=== PATIENT | male | born 1960 | race Caucasian/White ===

== ENCOUNTER 2016-04-13 18:59 | Inpatient (IN) | payer MEDICAID ==
[~2016-04-13] VITALS: Ht 172.7 cm; Wt 122.8 kg
[2016-04-13 20:22] LABS: BASOPHILS % (AUTO) 2.6 % (0.0-2.0); EOSINOPHILS % (AUTO) 1.8 % (1.0-6.0); HEMATOCRIT 38.5 % (41-53); LYMPHOCYTES # (AUTO) 2.7 K/uL (1.0-4.8); MEAN CORPUSCULAR HGB CONC 33.9 G/dL (31.0-37.0); MEAN CORPUSCULAR VOLUME 94 fL (80-100); MONOCYTES # (AUTO) 0.6 K/uL (0.1-1.0); MONOCYTES % (AUTO) 6.1 % (2.0-9.0); NEUTROPHILS # (AUTO) 6.7 K/uL (1.8-7.7); NEUTROPHILS % (AUTO) 63.5 % (40.0-70.0); PLATELET COUNT (AUTO) 428 K/uL (150-450); RED BLOOD CELL COUNT(AUTO) 4.08 MIL/uL (4.50-5.90); RED CELL DISTRIBUTION WIDTH 14.1 % (11.5-14.5); WHITE BLOOD COUNT (AUTO) 10.6 K/uL (4.5-11.0)
[2016-04-13 20:29] LABS: ANION GAP 10 mmol/L (8-16); CALCIUM, TOTAL 8.6 mg/dL (8.8-10.5); CARBON DIOXIDE 23 mmol/L (22-29); CHLORIDE 92 mmol/L (98-107); GLOMERULAR FILTR. RATE CALC > 60 mL/min (>60); POTASSIUM 3.9 mmol/L (3.5-5.1); SODIUM SERUM 125 mmol/L (136-145); UREA NITROGEN, BLOOD 8 mg/dL (7-18)
[2016-04-13 20:35] LABS: ALANINE AMINOTRANSFERASE 53 U/L (12-78); ALBUMIN 3.2 g/dL (3.4-5.0); ASPARTATE AMINOTRANSFERASE 45 U/L (15-37); BILIRUBIN,TOTAL 0.2 mg/dL (0.1-1.0); CREATINE KINASE, TOTAL 56 U/L (39-308); TOTAL PROTEIN, SERUM 7.3 g/dL (6.4-8.2)
[2016-04-13 20:45] LABS: B-TYPE NATRIURETIC PEPTIDE 36 pg/mL (0-100)
[2016-04-13 21:15] LABS: INR 0.9 (0.9-1.1)
[2016-04-13 21:42] LABS: GLUCOSE, URINE (UA) NEGATIVE (NEGATIVE); KETONES,URINE NEGATIVE (NEGATIVE); LEUKOCYTE ESTERASE ,URINE NEGATIVE (NEGATIVE); OCCULT BLOOD,URINE NEGATIVE (NEGATIVE); PH,URINE 5.5 (5.0-8.0); PROTEIN,URINE NEGATIVE (NEGATIVE)
[2016-04-13 21:50] LABS: AMMONIA 18 umol/L (11-32); TROPONIN I < 0.02 ng/mL (0.00-0.05)
[2016-04-13 21:50] LABS: ADD UA MICROSCOPIC NO; APPEARANCE,URINE CLEAR (CLEAR)
[2016-04-13] MEDS ORDERED: SODIUM CHLORIDE 0.9% 1,000 ML IV ONE (22:00)
[2016-04-13] MEDS ORDERED: MAGNESIUM SULFATE 2 GM, MVI, ADULT NO.1 WITH VIT K 10 ML, THIAMINE HCL 100 MG, FOLIC AC... IV ONE ×5 (22:30)
[2016-04-13] MEDS ORDERED: LORazepam 2 MG/ML VIAL IVP ONE (23:30)
[2016-04-13] MEDS ORDERED: ONDANSETRON HCL 4 MG/2 ML VIAL IVP PRN (23:45)
[2016-04-13] MEDS ORDERED: 0.9% SODIUM CHLORIDE 10 ML SYRINGE IVP PRN (23:45)
[2016-04-14] VITALS (7 sets, daily range): BP systolic 130–155; BP diastolic 71–98
[2016-04-14 00:01] LABS: ACETAMINOPHEN 8 mcg/mL (10-30)
[2016-04-14] MEDS ORDERED: ChlordiazePOXIDE HCL 25 MG CAPSULE PO PRN (01:45)
[2016-04-14] MEDS ORDERED: OxyCODONE HCL/ACETAMINOPHEN 5-325 MG TABLET PO PRN (02:00)
[2016-04-14] MEDS ORDERED: ONDANSETRON HCL 4 MG/2 ML VIAL IVP PRN (02:00)
[2016-04-14] MEDS ORDERED: 0.9% SODIUM CHLORIDE 10 ML SYRINGE IVP PRN (02:00)
[2016-04-14] MEDS: SODIUM CHLORIDE 0.9% 1,000 ML IV SCH ×2 (02:11→19:47)
[2016-04-14] MEDS: DOCUSATE SODIUM 100 MG CAPSULE PO SCH ×3 (02:11→19:47)
[2016-04-14] MEDS: OxyCODONE HCL/ACETAMINOPHEN 5-325 MG TABLET PO PRN (02:12)
[2016-04-14] MEDS ORDERED: INFLUENZA VIRUS VACCINE QVS 2016-17 (3YR+)/PF 60 MCG/0.5 ML SYRINGE IM ONE (02:15)
[2016-04-14 06:24] LABS: HEMOGLOBIN A1C 5.8 % (4.5-6.2)
[2016-04-14 06:32] LABS: CHOL/HDL RATIO 2.2 (4.2-7.3)
[2016-04-14] MEDS: MULTIVITAMINS, THERAPEUTIC TABLET PO SCH (08:20)
[2016-04-14] MEDS: THIAMINE HCL 100 MG TABLET PO SCH (08:20)
[2016-04-14] MEDS: FOLIC ACID 1 MG TABLET PO SCH (08:20)
[2016-04-14] MEDS: PANTOPRAZOLE SODIUM 40 MG/VIAL IVP SCH (08:21)
[2016-04-14] MEDS ORDERED: GADOBUTROL 1 MMOL/ML 10 ML VIAL IVP ONE (08:49)
[2016-04-14] MEDS ORDERED: PANTOPRAZOLE SODIUM 40 MG/VIAL IVP SCH (09:00)
[2016-04-15 04:51] VITALS: BP 153/74
[2016-04-15] MEDS: OxyCODONE HCL/ACETAMINOPHEN 5-325 MG TABLET PO PRN ×2 (04:57→16:46)
[2016-04-15 06:34] LABS: BASOPHILS % (AUTO) 1.1 % (0.0-2.0); EOSINOPHILS % (AUTO) 1.1 % (1.0-6.0); HEMATOCRIT 36.7 % (41-53); HEMOGLOBIN 12.3 g/dL (13.5-17.5); LYMPHOCYTES # (AUTO) 1.9 K/uL (1.0-4.8); LYMPHOCYTES % (AUTO) 18.6 % (22.0-44.0); MEAN CORPUSCULAR HEMOGLOBIN 32.1 pg (26.0-34.0); MEAN CORPUSCULAR HGB CONC 33.4 G/dL (31.0-37.0); MEAN CORPUSCULAR VOLUME 96 fL (80-100); MONOCYTES # (AUTO) 0.6 K/uL (0.1-1.0); MONOCYTES % (AUTO) 6.4 % (2.0-9.0); NEUTROPHILS # (AUTO) 7.2 K/uL (1.8-7.7); NEUTROPHILS % (AUTO) 72.8 % (40.0-70.0); PLATELET COUNT (AUTO) 361 K/uL (150-450); RED BLOOD CELL COUNT(AUTO) 3.83 MIL/uL (4.50-5.90); RED CELL DISTRIBUTION WIDTH 14.3 % (11.5-14.5); WHITE BLOOD COUNT (AUTO) 9.9 K/uL (4.5-11.0)
[2016-04-15 06:45] LABS: ANION GAP 7 mmol/L (8-16); CALCIUM, TOTAL 9.1 mg/dL (8.8-10.5); CARBON DIOXIDE 27 mmol/L (22-29); CHLORIDE 100 mmol/L (98-107); CREATININE 0.62 mg/dL (0.60-1.30); GLOMERULAR FILTR. RATE CALC > 60 mL/min (>60); POTASSIUM 3.8 mmol/L (3.5-5.1); SODIUM SERUM 134 mmol/L (136-145); UREA NITROGEN, BLOOD 3 mg/dL (7-18)
[2016-04-15] MEDS ORDERED: ChlordiazePOXIDE HCL 25 MG CAPSULE PO PRN (07:00)
[2016-04-15] MEDS: SODIUM CHLORIDE 0.9% 1,000 ML IV SCH (07:51)
[2016-04-15] MEDS: ChlordiazePOXIDE HCL 25 MG CAPSULE PO SCH ×4 (08:03→20:31)
[2016-04-15] MEDS: THIAMINE HCL 100 MG TABLET PO SCH (08:03)
[2016-04-15] MEDS: FOLIC ACID 1 MG TABLET PO SCH (08:03)
[2016-04-15] MEDS: DOCUSATE SODIUM 100 MG CAPSULE PO SCH ×2 (08:04→20:31)
[2016-04-15] MEDS: MULTIVITAMINS, THERAPEUTIC TABLET PO SCH (08:04)
[2016-04-15] MEDS: PANTOPRAZOLE SODIUM 40 MG/VIAL IVP SCH (08:04)
[2016-04-15 08:14] VITALS: BP 163/80
[2016-04-15 11:21] VITALS: BP 151/98
[2016-04-15 15:37] VITALS: BP 108/58
[2016-04-15 20:41] VITALS: BP 121/85
[2016-04-16 00:04] VITALS: BP 119/78
[2016-04-16] MEDS: OxyCODONE HCL/ACETAMINOPHEN 5-325 MG TABLET PO PRN (00:28)
[2016-04-16] MEDS: SODIUM CHLORIDE 0.9% 1,000 ML IV SCH ×3 (00:30→13:45)
[2016-04-16 04:18] VITALS: BP 122/75
[2016-04-16 07:16] VITALS: BP 140/74
[2016-04-16] MEDS: PANTOPRAZOLE SODIUM 40 MG/VIAL IVP SCH (08:09)
[2016-04-16] MEDS: MULTIVITAMINS, THERAPEUTIC TABLET PO SCH (08:10)
[2016-04-16] MEDS: ChlordiazePOXIDE HCL 25 MG CAPSULE PO SCH ×3 (08:10→15:25)
[2016-04-16] MEDS: FOLIC ACID 1 MG TABLET PO SCH (08:10)
[2016-04-16] MEDS: THIAMINE HCL 100 MG TABLET PO SCH (08:10)
[2016-04-16] MEDS: DOCUSATE SODIUM 100 MG CAPSULE PO SCH (08:10)
[2016-04-16 11:19] VITALS: BP 138/72
[2016-04-16 15:32] VITALS: BP 131/76
[2016-04-17] MEDS ORDERED: ChlordiazePOXIDE HCL 10 MG CAPSULE PO PRN (07:00)
[2016-04-17] MEDS ORDERED: ChlordiazePOXIDE HCL 10 MG CAPSULE PO SCH (09:00)
[2016-04-18] MEDS ORDERED: ChlordiazePOXIDE HCL 10 MG CAPSULE PO PRN (07:00)
== END 2016-04-16 17:25 | disposition home or self-care (01) | DRG 775 ==
LOC: EMS 18:59 → 6N 04-14 00:15
PROVIDERS: ADMIT Internal Medicine; ATTEND Internal Medicine
DX: F10.229 Alcohol dependence with intoxication, unspecified (principal); E43 Unspecified severe protein-calorie malnutrition; G93.41 Metabolic encephalopathy; E87.1 Hypo-osmolality and hyponatremia; Z91.81 History of falling; Z68.41 Body mass index [BMI] 40.0-44.9, adult
CPT/HCPCS: 70450; 70544; 70553; 71020; 71101; 73502; 83036; 90471; 93005; 96365; 96366; 96375; 99285; A9585; C9113; G0480; G0481; J2060; J3411; J3475; J3490; J7030

== ENCOUNTER 2017-05-31 15:56 | Emergency (ER) | payer MEDICAID ==
[~2017-05-31] VITALS: Ht 175.3 cm; Wt 145.0 kg
[2017-05-31] MEDS ORDERED: THIA100 PO (16:08)
[2017-05-31] MEDS ORDERED: FOLI1 PO (16:08)
[2017-05-31] MEDS ORDERED: POTA10CA69 PO (16:08)
[2017-05-31] MEDS ORDERED: MULT1TAB66 PO (16:08)
[2017-05-31] MEDS ORDERED: FURO20 PO (16:08)
[2017-05-31 18:06] VITALS: BP 140/80
[2017-05-31 18:29] LABS: BASOPHILS % (AUTO) 1.5 % (0.0-2.0); EOSINOPHILS % (AUTO) 3.3 % (1.0-6.0); HEMATOCRIT 34.3 % (41-53); HEMOGLOBIN 11.8 g/dL (13.5-17.5); LYMPHOCYTES % (AUTO) 24.3 % (22.0-44.0); MEAN CORPUSCULAR HGB CONC 34.3 G/dL (31.0-37.0); MEAN CORPUSCULAR VOLUME 91 fL (80-100); MONOCYTES # (AUTO) 0.7 K/uL (0.1-1.0); MONOCYTES % (AUTO) 5.9 % (2.0-9.0); NEUTROPHILS # (AUTO) 8.1 K/uL (1.8-7.7); PLATELET COUNT (AUTO) 341 K/uL (150-450); RED BLOOD CELL COUNT(AUTO) 3.79 MIL/uL (4.50-5.90); RED CELL DISTRIBUTION WIDTH 15.6 % (11.5-14.5)
[2017-05-31 18:33] LABS: APPEARANCE,URINE CLEAR (CLEAR); BILIRUBIN,URINE NEGATIVE (NEGATIVE); GLUCOSE, URINE (UA) NEGATIVE (NEGATIVE); KETONES,URINE NEGATIVE (NEGATIVE); LEUKOCYTE ESTERASE ,URINE NEGATIVE (NEGATIVE); NITRATE,URINE NEGATIVE (NEGATIVE); OCCULT BLOOD,URINE NEGATIVE (NEGATIVE); PROTEIN,URINE NEGATIVE (NEGATIVE); UROBILINOGEN,URINE 0.2 mg/dL (<=1.0)
[2017-05-31 18:39] LABS: ANION GAP 9 mmol/L (8-16); CALCIUM, TOTAL 9.7 mg/dL (8.8-10.5); CARBON DIOXIDE 27 mmol/L (22-29); CHLORIDE 96 mmol/L (98-107); CREATININE 0.79 mg/dL (0.60-1.30); GLOMERULAR FILTR. RATE CALC > 60 mL/min (>60); GLUCOSE,RANDOM 119 mg/dL (70-110); POTASSIUM 3.8 mmol/L (3.5-5.1); SODIUM SERUM 132 mmol/L (136-145); UREA NITROGEN, BLOOD 7 mg/dL (7-18)
[2017-05-31 18:46] LABS: ALANINE AMINOTRANSFERASE 35 U/L (12-78); ALBUMIN 3.2 g/dL (3.4-5.0); ALKALINE PHOSPHATASE 182 U/L (46-116); ASPARTATE AMINOTRANSFERASE 89 U/L (15-37); BILIRUBIN,TOTAL 0.5 mg/dL (0.1-1.0); TOTAL PROTEIN, SERUM 8.1 g/dL (6.4-8.2)
== END 2017-05-31 18:55 | disposition home or self-care (01) ==
LOC: EMS 15:58
DX: E87.1 Hypo-osmolality and hyponatremia (principal); Z91.030 Bee allergy status
CPT/HCPCS: 36415; 80053; 81003; 85025; 93005; 99285; G0480

== ENCOUNTER 2017-08-19 22:59 | Emergency (ER) | payer MEDICAID ==
[~2017-08-19] VITALS: Ht 175.3 cm; Wt 133.2 kg
[~2017-08-19 22:59] MED LIST: FOLI1 PO; FURO20 PO; MULT1TAB66 PO; POTA10CA69 PO; THIA100T67 PO
[2017-08-19 23:30] VITALS: BP 124/71
== END 2017-08-20 00:15 | disposition left against medical advice (07) ==
LOC: EMS 22:59
DX: F10.129 Alcohol abuse with intoxication, unspecified (principal); I25.2 Old myocardial infarction; Z91.030 Bee allergy status
CPT/HCPCS: 99283

== ENCOUNTER 2017-10-18 11:02 | Emergency (ER) | payer MEDICAID ==
[~2017-10-18] VITALS: Ht 172.7 cm; Wt 136.4 kg
[2017-10-18 11:38] VITALS: BP 145/96
== END 2017-10-18 11:52 | disposition home or self-care (01) ==
LOC: EMS 11:02
DX: L98.9 Disorder of the skin and subcutaneous tissue, unspecified (principal); L53.9 Erythematous condition, unspecified; I25.2 Old myocardial infarction; I25.10 Atherosclerotic heart disease of native coronary artery without angina pectoris; Z91.030 Bee allergy status; Z79.899 Other long term (current) drug therapy
CPT/HCPCS: 99283

== ENCOUNTER 2019-03-05 16:22 | Emergency (ER) | payer MEDICAID ==
[~2019-03-05] VITALS: Ht 172.7 cm; Wt 140.9 kg
[~2019-03-05 16:22] MED LIST changes: +AMLO5TAB9 PO; +BENZ-51 PO; +LOSA25TA41 PO; +MAGOX PO; +METO-558 PO; +PARO10TA89 PO; -POTA10CA69 PO; +PRED1 PO; +TAMS-1 PO
[2019-03-05] MEDS ORDERED: ATOR20TA86 PO (16:31)
[2019-03-05] MEDS ORDERED: KETOROLAC TROMETHAMINE 60 MG/2 ML VIAL IM ONE (19:45)
[2019-03-05 20:38] VITALS: BP 123/84
== END 2019-03-05 21:19 | disposition home or self-care (01) ==
LOC: EMS 16:22
DX: S20.211A Contusion of right front wall of thorax, initial encounter (principal); M54.5 Low back pain; E78.00 Pure hypercholesterolemia, unspecified; I10 Essential (primary) hypertension; I25.2 Old myocardial infarction; F10.20 Alcohol dependence, uncomplicated; Z79.899 Other long term (current) drug therapy; Z91.030 Bee allergy status; W18.39XA Other fall on same level, initial encounter; Y93.89 Activity, other specified; Y92.89 Other specified places as the place of occurrence of the external cause; Y99.8 Other external cause status
CPT/HCPCS: 71101; 96372; 99283; J1885